=== PATIENT | female | born 1945 | race Caucasian/White ===

== ENCOUNTER → 2018-01-20 12:47 | Outpatient (CLI) | payer MEDICARE, SELFPAY ==
--- NOTE | 2018-01-20 | DI.CT.S_ITS ---
PROCEDURE: CT ABDOMEN WWO PELVIS W INDICATIONS: RIGHT RENAL MASS TECHNIQUE: After the administration of oral contrast, 5 mm thick sections acquired from the diaphragms to the iliac crests. After the administration of intravenous contrast, 5 mm thick sections acquired from the diaphragms to the symphysis. 5 mm thick coronal and sagittal reformats were acquired. For radiation dose reduction, the following was used: automated exposure control, adjustment of mA and/or kV according to patient size. COMPARISON: [facility], CT, ABDOMEN/PELVIS WITH CONTRAST, 08/10/2014, 10:14. FINDINGS: Image quality: Excellent. ABDOMEN: Lung bases: Mild pulmonary radiopacities are present at the left lung base which may represent trace atelectasis. No pleural effusion or pneumothorax. Solid organs: Liver is normal in size and enhancement. 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 Gallbladder is contracted. Biliary system is non-dilated. Pancreas enhances normally. Spleen is normal in size and enhancement. No adrenal nodules. The kidneys are normal in size and enhancement. No hydronephrosis or nephrolithiasis. Patient is status post resection of an exophytic renal mass off the lower pole of the right kidney. Bowel and peritoneum: Stomach, small and large bowel loops are normal in caliber and wall thickness. No free fluid or air. Nodes and vessels: No retroperitoneal or mesenteric adenopathy by size criteria. Aorta and inferior vena are normal in caliber. Scattered atheromatous calcifications are present within the abdominal aorta and the iliac arteries. Miscellaneous: No ventral hernias. PELVIS: Genitourinary: Bladder wall thickness is normal. Miscellaneous: No inguinal hernias or adenopathy. Bones: No suspicious bony lesions. No vertebral body compression fractures. Superior endplate compression deformities at L1 and L2 are unchanged. IMPRESSION: 1. Postoperative changes at the lower pole the right kidney secondary to renal mass resection. 2. No findings to suggest tumor recurrence or metastasis. Dictated by: Magali Chapman M.D. on 01/20/2018 at 15:52 Approved by: Magali Chapman M.D. on 01/20/2018 at 15:59
[2018-01-20 14:49] LABS: Alanine Aminotransferase 28 IU/L (9-52); Albumin 4.2 g/dL (3.5-5.0); Albumin Globulin Ratio 1.8 (1.0-2.8); Alkaline Phosphatase 70 U/L (38-126); Aspartate Aminotransferase 29 IU/L (14-36); BUN Creatinine Ratio 18.8 (6-22); Bilirubin Total 0.6 mg/dL (0.2-1.3); Blood Urea Nitrogen 15 mg/dL (7-17); Calcium 9.8 mg/dL (8.4-10.2); Carbon Dioxide 30 mmol/L (22-32); Chloride 101 mmol/L (98-107); Estimated Glomerular Filt Rate > 60.0 mL/min (>60); Globulin 2.4 g/dL (1.7-4.1); Glucose 96 mg/dL (80-110); HEMOLYSIS < 15 (0-50); Potassium 4.9 mmol/L (3.4-5.1); Sodium 139 mmol/L (137-145); Total Protein 6.6 g/dL (6.3-8.2)
== END ==
PROVIDERS: PCP Family Medicine; Visit Provider Family Medicine
DX: N28.89 Other specified disorders of kidney and ureter (principal)
CPT/HCPCS: 36415; 74178; 80053; Q9967

== ENCOUNTER 2020-05-26 12:45 | Emergency (ER) | payer MEDICARE, SELFPAY ==
[2020-05-26] VITALS (9 sets, daily range): BP systolic 139–199; BP diastolic 67–87; PULSE 50–67; RESP 16–25; TEMP 36.4–37.1; O2SAT 98–99; BMI 20.9
--- NOTE | 2020-05-26 13:18 | DI.RAD.S_ITS ---
PROCEDURE: XR CHEST 1V INDICATIONS: palpitations TECHNIQUE: One view of the chest was acquired. COMPARISON: None. FINDINGS: Overlying EKG wires. Surgical changes and devices: None. Lungs and pleura: Lungs are clear. No pleural effusions or pneumothorax. Mediastinum: Mediastinal contours appear normal. Heart size is normal. Bones and chest wall: Osseous structures are diffusely demineralized. No acute osseous abnormality. No suspicious bony lesions. Overlying soft tissues appear unremarkable. IMPRESSION: No evidence of an acute cardiopulmonary abnormality. Dictated by: Cisco Jimenez D.O. on 05/26/2020 at 12:32 Approved by: Cisco Jimenez D.O. on 05/26/2020 at 12:33
--- NOTE | 2020-05-26 13:19 | ED.ARRPALP ---
HPI - Arrhythmia/Palpitations <RACHEL Boss-BC - Last Filed: 05/26/20 17:35> General Chief Complaint: Arrhythmia/Palpitations Stated Complaint: heart not beating normally for a couple of days Time Seen by Provider: 05/26/20 13:04 Source: patient and family Mode of arrival: Ambulatory Limitations: no limitations History of Present Illness HPI narrative: The patient is a 74-year-old female nonsmoker with history of supraventricular tachycardia who presents with her with a chief complaint of palpitations over the past few days. She notes that they have been coming and going, with no specific trigger. She denies any chest pain or lightheadedness. She denies any swelling of her extremities. She states that she takes digoxin 125 and verapamil 240 extended release every otherwise she takes no other medications. She denies any nausea or vomiting. She denies any abdominal pain. She states that her supraventricular tachycardia has been well controlled with her medications, she has never had a ablation or procedure. She does not have a human resources generalist. Related Data Allergies Allergy/AdvReac Type Severity Reaction Status Date / Time levofloxacin [From LEVAQUIN] Allergy Mild tingling Verified 05/26/20 13:00 metronidazole [METRONIDAZOLE] Allergy Mild tingling Verified 05/26/20 13:00 levothyroxine sodium Allergy Unknown tingling - Verified 05/26/20 13:00 [LEVOTHYROXINE SODIUM] unsure which med caused it Review of Systems <RACHEL Boss-BC - Last Filed: 05/26/20 17:35> Review of Systems Narrative: GENERAL: Denies chills, fatigue, malaise, fever, sweats. HEENT: Denies sinus pain, ear pain, sore throat, difficulty swallowing, dizziness. RESPIRATORY: Denies dyspnea, cough, wheezing, hemoptysis, sputum. CARDIOVASCULAR: HPI GASTROINTESTINAL: Denies nausea, vomiting, abdominal pain, diarrhea, constipation, melena. : Denies dysuria, frequency, incontinence, hematuria, urinary retention. MUSCULOSKELETAL: denies weakness, joint pain, or bony pain SKIN: Denies rash, skin lesions, or other NEUROLOGIC: Denies weakness, headache, numbness, change in speech, confusion, seizures, incoordination. PSYCHIATRIC: No concerning psychosocial issues. 12 point review of systems is negative except for those stated above Patient History <SHAY Boss - Last Filed: 05/26/20 17:35> Medical History (Updated 05/26/20 @ 15:45 by SHAY Boss) History of supraventricular tachycardia Social History Smoking Status: Unknown if ever smoked Smoking Status: Unknown if ever smoked alcohol intake frequency: holidays/special occasions only Substance Use Type: does not use Exam <SHAY Boss - Last Filed: 05/26/20 17:35> Narrative Exam Narrative: GENERAL: This is a well-nourished, well-developed patient, in no acute distress lying on stretcher HEAD: Atraumatic. Normocephalic. No temporal or scalp tenderness. EYES: Pupils equal round and reactive. Extraocular motions intact. No scleral icterus. No injection or drainage. ENT: Nose without bleeding, purulent drainage or septal hematoma. Wearing a mask. Airway patent. NECK: Trachea midline. No JVD or lymphadenopathy. Supple, nontender, no meningeal signs. CARDIOVASCULAR: Regular rate and rhythm RESPIRATORY: Clear to auscultation. Breath sounds equal bilaterally. No wheezes, rales, or rhonchi. No cough. No increased respiratory effort. No accessory muscle use. GASTROINTESTINAL: Abdomen soft, non-tender, nondistended. No hepato-splenomegaly, or palpable masses. No guarding. EXTREMITIES: No clubbing, cyanosis, or edema. No joint tenderness, effusion, or edema noted. BACK: Nontender without deformity or crepitance. No flank tenderness. NEURO: AOx3. Clear speech. No gross cranial nerve deficit. SKIN: No rash or erythema on visible skin Initial Vital Signs Initial Vital Signs: Vital Signs Temperature 97.5 F L 05/26/20 12:50 Pulse Rate 64 05/26/20 12:50 Respiratory Rate 17 05/26/20 12:50 Blood Pressure 199/87 H 05/26/20 12:50 Pulse Oximetry 98 05/26/20 12:50 <Malathi Magaña DO - Last Filed: 05/27/20 07:47> Initial Vital Signs Initial Vital Signs: Vital Signs Temperature 97.5 F L 05/26/20 12:50 Pulse Rate 64 05/26/20 12:50 Respiratory Rate 17 05/26/20 12:50 Blood Pressure 199/87 H 05/26/20 12:50 Pulse Oximetry 98 05/26/20 12:50 Scores <Dunia SHAY Aly - Last Filed: 05/26/20 17:35> GCS [place] coma scale eye opening: Spontaneous [place] coma scale verbal response: Orientated Miracle coma scale motor response: Obey commands Miracle coma scale total score: 15 Course <Dunia GODWIN Aly - Last Filed: 05/26/20 17:35> Orders Ordered: ED Orders 05/26/20 12:55 Complete Blood Count AUTO DIFF Stat Comprehensive Metabolic Panel Stat Digoxin Stat Lipase Stat Magnesium Stat NT-proBNP (BNP-Adult 18+) Stat Troponin & CK Cardiac Panel Stat 05/26/20 13:18 XR chest 1V Stat EKG-12 Lead Stat 05/26/20 13:44 Urine Microscopic Stat Vital Signs Vital signs: Vital Signs - 8 hr 05/26/20 12:50 05/26/20 12:52 05/26/20 13:00 Temperature 97.5 F L Pulse Rate 64 67 59 L Respiratory Rate 17 25 H Blood Pressure 199/87 H 199/87 H 181/81 H Pulse Oximetry 98 98 99 05/26/20 13:30 05/26/20 14:00 05/26/20 14:30 Temperature Pulse Rate 50 L 50 L 51 L Respiratory Rate 16 16 16 Blood Pressure 162/72 H 167/74 H 148/67 H Pulse Oximetry 99 98 98 05/26/20 15:00 05/26/20 15:30 05/26/20 15:54 Temperature 98.8 F Pulse Rate 52 L 51 L Respiratory Rate 16 17 Blood Pressure 139/67 148/69 H Pulse Oximetry 98 98 <Malathi Magaña DO - Last Filed: 05/27/20 07:47> Orders Ordered: ED Orders 05/26/20 12:55 Complete Blood Count AUTO DIFF Stat Comprehensive Metabolic Panel Stat Digoxin Stat Lipase Stat Magnesium Stat NT-proBNP (BNP-Adult 18+) Stat Troponin & CK Cardiac Panel Stat 05/26/20 13:18 XR chest 1V Stat EKG-12 Lead Stat 05/26/20 13:44 Urine Microscopic Stat Vital Signs Vital signs: Vital Signs - 8 hr 05/26/20 12:50 05/26/20 12:52 05/26/20 13:00 Temperature 97.5 F L Pulse Rate 64 67 59 L Respiratory Rate 17 25 H Blood Pressure 199/87 H 199/87 H 181/81 H Pulse Oximetry 98 98 99 05/26/20 13:30 05/26/20 14:00 05/26/20 14:30 Temperature Pulse Rate 50 L 50 L 51 L Respiratory Rate 16 16 16 Blood Pressure 162/72 H 167/74 H 148/67 H Pulse Oximetry 99 98 98 05/26/20 15:00 05/26/20 15:30 05/26/20 15:54 Temperature 98.8 F Pulse Rate 52 L 51 L Respiratory Rate 16 17 Blood Pressure 139/67 148/69 H Pulse Oximetry 98 98 MDM - Arrhythmia/Palpitations <RACHEL Boss- - Last Filed: 05/26/20 17:35> Differential Diagnosis Differential diagnosis: Likely palpitations, anxiety, artial fibrillation and artial flutter Lab Data Attestation: I reviewed the patient's lab results. Result diagrams: 05/26/20 12:55 05/26/20 12:55 Labs: Lab Results 05/26/20 05/26/20 05/26/20 Range/Units 12:55 12:55 12:55 WBC 7.1 (4.5-11.0) X10^3/uL RBC 4.87 (4.0-5.2) X10^6/uL Hgb 14.7 (12.0-16.0) g/dL Hct 44.3 (36-46) % MCV 91.0 (80-100) fL MCH 30.1 (26-34) PG MCHC 33.1 (30-36) % RDW 14.2 (11.6-14.8) % Plt Count 268 (150-400) X10^3/uL Neut % (Auto) 71.1 (50-75) % Lymph % (Auto) 21.7 L (25-40) % [place] % (Auto) 6.1 (3-14) % Eos % (Auto) 0.2 L (2-4) % Baso % (Auto) 0.9 (0-2) % Neut # (Auto) 5100 (3512-2011) /uL Lymph # (Auto) 1500 (2632-8602) /uL [place] # (Auto) 400 (0-900) /uL Eos # (Auto) 0 (0-450) /uL Baso # (Auto) 100 (0-100) /uL Sodium 135 L (137-145) mmol/L Potassium 3.8 (3.4-5.1) mmol/L Chloride 104 (98-107) mmol/L Carbon Dioxide 27 (22-32) mmol/L BUN 15 (7-17) mg/dL Creatinine 0.63 (0.52-1.04) mg/dL Estimated GFR > 60.0 (>60) mL/min BUN/Creatinine Ratio 23.8 H (6-22) Glucose 106 (80-110) mg/dL Calcium 9.6 (8.4-10.2) mg/dL Magnesium 1.9 (1.6-2.3) mg/dL Total Bilirubin 0.6 (0.2-1.3) mg/dL AST 32 (14-36) IU/L ALT 29 (<35) IU/L Alkaline Phosphatase 83 (38-126) U/L Total Creatine Kinase 50 (30-135) U/L CK-MB (CK-2) TNP CK-MB (CK-2) Rel Index TNP Troponin I < 0.012 (0.01-0.034) ng/mL NT-Pro-B Natriuret Pep 290 H (<125) pg/mL Total Protein 7.5 (6.3-8.2) g/dL Albumin 4.5 (3.5-5.0) g/dL Globulin 3.0 (1.7-4.1) g/dL Albumin/Globulin Ratio 1.5 (1.0-2.8) Lipase 73 (23-300) U/L Urine RBC (0-5/HPF) Urine WBC (0-5/HPF) Ur Squamous Epith Cells (0-5/HPF) Urine Bacteria (None) Ur Culture Indicated? Digoxin 1.0 (0.8-2.0) ng/mL 05/26/20 Range/Units 13:44 WBC (4.5-11.0) X10^3/uL RBC (4.0-5.2) X10^6/uL Hgb (12.0-16.0) g/dL Hct (36-46) % MCV (80-100) fL MCH (26-34) PG MCHC (30-36) % RDW (11.6-14.8) % Plt Count (150-400) X10^3/uL Neut % (Auto) (50-75) % Lymph % (Auto) (25-40) % [place] % (Auto) (3-14) % Eos % (Auto) (2-4) % Baso % (Auto) (0-2) % Neut # (Auto) (2881-5369) /uL Lymph # (Auto) (1544-7434) /uL [place] # (Auto) (0-900) /uL Eos # (Auto) (0-450) /uL Baso # (Auto) (0-100) /uL Sodium (137-145) mmol/L Potassium (3.4-5.1) mmol/L Chloride (98-107) mmol/L Carbon Dioxide (22-32) mmol/L BUN (7-17) mg/dL Creatinine (0.52-1.04) mg/dL Estimated GFR (>60) mL/min BUN/Creatinine Ratio (6-22) Glucose (80-110) mg/dL Calcium (8.4-10.2) mg/dL Magnesium (1.6-2.3) mg/dL Total Bilirubin (0.2-1.3) mg/dL AST (14-36) IU/L ALT (<35) IU/L Alkaline Phosphatase (38-126) U/L Total Creatine Kinase (30-135) U/L CK-MB (CK-2) CK-MB (CK-2) Rel Index Troponin I (0.01-0.034) ng/mL NT-Pro-B Natriuret Pep (<125) pg/mL Total Protein (6.3-8.2) g/dL Albumin (3.5-5.0) g/dL Globulin (1.7-4.1) g/dL Albumin/Globulin Ratio (1.0-2.8) Lipase (23-300) U/L Urine RBC 0-1/hpf (0-5/HPF) Urine WBC 1-5/hpf (0-5/HPF) Ur Squamous Epith Cells 0-1 /hpf (0-5/HPF) Urine Bacteria None seen (None) Ur Culture Indicated? Cult not indicated Digoxin (0.8-2.0) ng/mL Urine Dip Bedside Urine Glucose Negative Bedside Urine Bilirubin - Negative Bedside Urine Ketone - Negative Urine Specific [place] 1.020 Bedside Urine Occult Blood - Negative Bedside Urine pH 6.0 Bedside Urine Protein - Negative Bedside Urine Urobilinogen - Negative Bedside Urine Nitrite - Negative Bedside Urine Leukocytes + 70 Esterase Imaging Data Chest x-ray: Radiologist's Impresson: Chest x-ray one view shows no evidence of acute cardiopulmonary abnormality per Jimenez D.O. ECG Data Attestation: I personally reviewed and interpreted this ECG as follows: Interpretation: Sinus rhythm. Ventricular rate 61. P.r. interval 138. QRS 86. Viewed by Dr Magaña MDM Narrative Medical decision making narrative: The patient is a 74-year-old female with history of SVT who presents with a chief complaint of palpitations over the past few days. Her EKG has no acute findings. She remains on telemetry for several hours with no observed ectopy or arrhythmias. Her labs are grossly within normal limits, no elevated troponin, normal electrolytes,dig level within range. She adamantly denies any chest pain, shortness of breath, abdominal pain or physical complaints whatsoever. She states that her palpitations improved upon arrival to the emergency department today. I discussed at length the importance of following up with primary care provider, she may benefit from an outpatient Holter monitor. Discussed the possibility of a 2nd troponin, though the patient would like to leave. Given that she has no chest pain or shortness of breath, I am okay with this. <Malathi Magaña, DO - Last Filed: 05/27/20 07:47> Lab Data Labs: Lab Results 05/26/20 05/26/20 05/26/20 Range/Units 12:55 12:55 12:55 WBC 7.1 (4.5-11.0) X10^3/uL RBC 4.87 (4.0-5.2) X10^6/uL Hgb 14.7 (12.0-16.0) g/dL Hct 44.3 (36-46) % MCV 91.0 (80-100) fL MCH 30.1 (26-34) PG MCHC 33.1 (30-36) % RDW 14.2 (11.6-14.8) % Plt Count 268 (150-400) X10^3/uL Neut % (Auto) 71.1 (50-75) % Lymph % (Auto) 21.7 L (25-40) % [place] % (Auto) 6.1 (3-14) % Eos % (Auto) 0.2 L (2-4) % Baso % (Auto) 0.9 (0-2) % Neut # (Auto) 5100 (0933-4788) /uL Lymph # (Auto) 1500 (8439-2585) /uL [place] # (Auto) 400 (0-900) /uL Eos # (Auto) 0 (0-450) /uL Baso # (Auto) 100 (0-100) /uL Sodium 135 L (137-145) mmol/L Potassium 3.8 (3.4-5.1) mmol/L Chloride 104 (98-107) mmol/L Carbon Dioxide 27 (22-32) mmol/L BUN 15 (7-17) mg/dL Creatinine 0.63 (0.52-1.04) mg/dL Estimated GFR > 60.0 (>60) mL/min BUN/Creatinine Ratio 23.8 H (6-22) Glucose 106 (80-110) mg/dL Calcium 9.6 (8.4-10.2) mg/dL Magnesium 1.9 (1.6-2.3) mg/dL Total Bilirubin 0.6 (0.2-1.3) mg/dL AST 32 (14-36) IU/L ALT 29 (<35) IU/L Alkaline Phosphatase 83 (38-126) U/L Total Creatine Kinase 50 (30-135) U/L CK-MB (CK-2) TNP CK-MB (CK-2) Rel Index TNP Troponin I < 0.012 (0.01-0.034) ng/mL NT-Pro-B Natriuret Pep 290 H (<125) pg/mL Total Protein 7.5 (6.3-8.2) g/dL Albumin 4.5 (3.5-5.0) g/dL Globulin 3.0 (1.7-4.1) g/dL Albumin/Globulin Ratio 1.5 (1.0-2.8) Lipase 73 (23-300) U/L Urine RBC (0-5/HPF) Urine WBC (0-5/HPF) Ur Squamous Epith Cells (0-5/HPF) Urine Bacteria (None) Ur Culture Indicated? Digoxin 1.0 (0.8-2.0) ng/mL 05/26/20 Range/Units 13:44 WBC (4.5-11.0) X10^3/uL RBC (4.0-5.2) X10^6/uL Hgb (12.0-16.0) g/dL Hct (36-46) % MCV (80-100) fL MCH (26-34) PG MCHC (30-36) % RDW (11.6-14.8) % Plt Count (150-400) X10^3/uL Neut % (Auto) (50-75) % Lymph % (Auto) (25-40) % [place] % (Auto) (3-14) % Eos % (Auto) (2-4) % Baso % (Auto) (0-2) % Neut # (Auto) (2751-7905) /uL Lymph # (Auto) (0708-8891) /uL [place] # (Auto) (0-900) /uL Eos # (Auto) (0-450) /uL Baso # (Auto) (0-100) /uL Sodium (137-145) mmol/L Potassium (3.4-5.1) mmol/L Chloride (98-107) mmol/L Carbon Dioxide (22-32) mmol/L BUN (7-17) mg/dL Creatinine (0.52-1.04) mg/dL Estimated GFR (>60) mL/min BUN/Creatinine Ratio (6-22) Glucose (80-110) mg/dL Calcium (8.4-10.2) mg/dL Magnesium (1.6-2.3) mg/dL Total Bilirubin (0.2-1.3) mg/dL AST (14-36) IU/L ALT (<35) IU/L Alkaline Phosphatase (38-126) U/L Total Creatine Kinase (30-135) U/L CK-MB (CK-2) CK-MB (CK-2) Rel Index Troponin I (0.01-0.034) ng/mL NT-Pro-B Natriuret Pep (<125) pg/mL Total Protein (6.3-8.2) g/dL Albumin (3.5-5.0) g/dL Globulin (1.7-4.1) g/dL Albumin/Globulin Ratio (1.0-2.8) Lipase (23-300) U/L Urine RBC 0-1/hpf (0-5/HPF) Urine WBC 1-5/hpf (0-5/HPF) Ur Squamous Epith Cells 0-1 /hpf (0-5/HPF) Urine Bacteria None seen (None) Ur Culture Indicated? Cult not indicated Digoxin (0.8-2.0) ng/mL Urine Dip Bedside Urine Glucose Negative Bedside Urine Bilirubin - Negative Bedside Urine Ketone - Negative Urine Specific [place] 1.020 Bedside Urine Occult Blood - Negative Bedside Urine pH 6.0 Bedside Urine Protein - Negative Bedside Urine Urobilinogen - Negative Bedside Urine Nitrite - Negative Bedside Urine Leukocytes + 70 Esterase Discharge Plan Departure Patient Disposition: Home Clinical Impression: Palpitations Instructions: DI for Palpitations Activity Restrictions/Additional Instructions: Thank you for trusting us with your care today. As discussed you have been on her registered nurse cardiac telemetry for several hours with no noted arrhythmias or irregular beats. Your EKG resulted well as did all of your lab work. Please follow-up with primary care provider in the next few days. If your palpitations continue, you may benefit from an outpatient monitor. Please come back to the emergency department for any acute concerns such as concern of chest pain, shortness of breath, concern of heart attack stroke or irregular heartbeat. Referrals: Isaaís Modi MD [Primary Care Provider] - <Malathi Magaña DO - Last Filed: 05/27/20 07:47> Cosign ED Attending Peterature Attestation: I was immediately available in the department for consultation. Documentation has been reviewed. I agree with assessment and plan.
[2020-05-26 13:28] LABS: Add Manual Diff / Slide Review NO; Basophils Absolute Auto 100 /uL (0-100); Basophils Percent Auto 0.9 % (0-2); Eosinophils Absolute Auto 0 /uL (0-450); Eosinophils Percent Auto 0.2 % (2-4); Hematocrit 44.3 % (36-46); Hemoglobin 14.7 g/dL (12.0-16.0); Lymphocytes Absolute Auto 1500 /uL (1100-4500); Lymphocytes Percent Auto 21.7 % (25-40); Mean Corpuscular HGB Conc 33.1 % (30-36); Mean Corpuscular Hemoglobin 30.1 PG (26-34); Monocytes Absolute Auto 400 /uL (0-900); Monocytes Percent Auto 6.1 % (3-14); Neutrophils Absolute Auto 5100 /uL (1500-7000); Neutrophils Percent Auto 71.1 % (50-75); Platelet Count 268 X10^3/uL (150-400); Red Blood Cell Count 4.87 X10^6/uL (4.0-5.2); Red Cell Distribution Width 14.2 % (11.6-14.8); White Blood Cell Count 7.1 X10^3/uL (4.5-11.0)
[2020-05-26 13:33] LABS: Alanine Aminotransferase 29 IU/L (<35); Albumin 4.5 g/dL (3.5-5.0); Albumin Globulin Ratio 1.5 (1.0-2.8); Alkaline Phosphatase 83 U/L (38-126); Aspartate Aminotransferase 32 IU/L (14-36); BUN Creatinine Ratio 23.8 (6-22); Bilirubin Total 0.6 mg/dL (0.2-1.3); Blood Urea Nitrogen 15 mg/dL (7-17); Calcium 9.6 mg/dL (8.4-10.2); Carbon Dioxide 27 mmol/L (22-32); Chloride 104 mmol/L (98-107); Creatine Kinase 50 U/L (30-135); Estimated Glomerular Filt Rate > 60.0 mL/min (>60); Glucose 106 mg/dL (80-110); HEMOLYSIS < 15 (0-50); Lipase 73 U/L (23-300); Magnesium 1.9 mg/dL (1.6-2.3); Potassium 3.8 mmol/L (3.4-5.1); Sodium 135 mmol/L (137-145); Total Protein 7.5 g/dL (6.3-8.2)
[2020-05-26 13:44] LABS: NT-proBNP (BNP-Adult 18+) 290 pg/mL (<125); Troponin I < 0.012 ng/mL (0.01-0.034)
[2020-05-26 13:50] LABS: Bacteria Urine None Seen
[2020-05-26 14:06] LABS: Culture Indicated Urine Cult Not Indicated; RBC Urine 0-1/HPF (0-5/HPF); Squamous Epithelial Cell Urine 0-1 /HPF (0-5/HPF); WBC Urine 1-5/HPF (0-5/HPF)
== END 2020-05-26 15:57 | disposition home or self-care (01) ==
PROVIDERS: Emergency Provider Nurse Practitioner Family; PCP Family Medicine
DX: R00.2 Palpitations (principal)
CPT/HCPCS: 36415; 71045; 80053; 80162; 81003; 81015; 82550; 83690; 83735; 83880; 84484; 85025; 93005; 93010; 99283; 99284

== ENCOUNTER 2020-10-08 10:33 | Observation (INO) | payer MEDICARE, SELFPAY ==
[2020-10-08] VITALS (11 sets, daily range): BP systolic 107–183; BP diastolic 45–80; PULSE 47–64; RESP 12–20; TEMP 35.9–36.7; O2SAT 96–99; BMI 24.7; BMI 20.2
--- NOTE | 2020-10-08 10:41 | DI.RAD.S_ITS ---
PROCEDURE: XR CHEST 1V INDICATIONS: chest pain TECHNIQUE: One view of the chest was acquired. COMPARISON: [facility], CR, XR CHEST 1V, 05/26/2020, 13:21. FINDINGS: Surgical changes and devices: None. Lungs and pleura: Mild left greater than right bibasilar patchy airspace opacity. No pleural effusions or pneumothorax. Mediastinum: Mediastinal contours appear normal. Heart size is normal. Bones and chest wall: No suspicious bony lesions. Overlying soft tissues appear unremarkable. IMPRESSION: Mild bibasilar atelectasis versus pneumonia. Dictated by: Damien Viveros M.D. on 10/08/2020 at 11:01 Approved by: Damien Viveros M.D. on 10/08/2020 at 11:02
[2020-10-08 11:12] LABS: Add Manual Diff / Slide Review NO; Basophils Absolute Auto 100 /uL (0-100); Basophils Percent Auto 0.9 % (0-2); Eosinophils Absolute Auto 0 /uL (0-450); Eosinophils Percent Auto 0.2 % (2-4); Hematocrit 44.6 % (36-46); Hemoglobin 14.7 g/dL (12.0-16.0); Lymphocytes Absolute Auto 1500 /uL (1100-4500); Lymphocytes Percent Auto 26.1 % (25-40); Mean Corpuscular HGB Conc 32.8 % (30-36); Mean Corpuscular Hemoglobin 29.9 PG (26-34); Mean Corpuscular Volume 91.2 fL (80-100); Monocytes Absolute Auto 300 /uL (0-900); Monocytes Percent Auto 6.2 % (3-14); Neutrophils Absolute Auto 3700 /uL (1500-7000); Neutrophils Percent Auto 66.6 % (50-75); Platelet Count 249 X10^3/uL (150-400); Prothrombin Time 11.3 SECONDS (10.1-12.7); Red Blood Cell Count 4.89 X10^6/uL (4.0-5.2); Red Cell Distribution Width 14.6 % (11.6-14.8); White Blood Cell Count 5.6 X10^3/uL (4.5-11.0)
--- NOTE | 2020-10-08 11:12 | ED.CHESTPAIN ---
HPI - Chest Pain General Chief Complaint: Chest Pain Stated Complaint: heart hasn't been feeling right Time Seen by Provider: 10/08/20 11:04 Source: patient Mode of arrival: Ambulatory History of Present Illness HPI narrative: Patient complains of intermittent substernal chest discomfort with palpitations in the past 1 week. Feels heart is skipping. Mild discomfort in the chest. No dyspnea no nausea no sweating. History of SVT. No previous cardioversion or ablation history. Last stress test 1 year ago in [place]. No recent echocardiogram. 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 Has family doctor on [facility]. Currently no complaints at this time. No recent illness fever chills cough cold congestion. No changes in medication. Including digoxin. Related Data Home Medications Medication Instructions Recorded Confirmed digoxin 125 mcg PO DAILY 10/08/20 10/08/20 verapamil 240 mg PO DAILY 10/08/20 10/08/20 Allergies Allergy/AdvReac Type Severity Reaction Status Date / Time levofloxacin [From LEVAQUIN] Allergy Mild tingling Verified 10/08/20 10:58 metronidazole [METRONIDAZOLE] Allergy Mild tingling Verified 10/08/20 10:58 levothyroxine sodium Allergy Unknown tingling - Verified 10/08/20 10:58 [LEVOTHYROXINE SODIUM] unsure which med caused it Review of Systems Review of Systems Narrative: GENERAL: Denies chills, fatigue, malaise, fever, sweats. HEENT: Denies sinus pain, ear pain, sore throat RESPIRATORY: Denies dyspnea, cough CARDIOVASCULAR: Complains chest pain, palpitations GASTROINTESTINAL: Denies nausea, vomiting, abdominal pain : Denies dysuria, frequency, hematuria MUSCULOSKELETAL: denies muscle or bony pain SKIN: Denies rash, skin lesions NEUROLOGIC: Denies weakness, numbness ROS Unobtainable: All systems reviewed & are unremarkable except as noted in HPI and below Patient History Medical History History of supraventricular tachycardia Surgical History (Updated 10/08/20 @ 22:01 by Cayetano Flanagan DO) H/O partial nephrectomy H/O: hysterectomy Social History household members: spouse Smoking Status: Former smoker alcohol intake: current Smoking Status: Never smoker alcohol intake frequency: 0-2 drinks per day Substance Use Type: does not use Exam Narrative Exam Narrative: GENERAL: in no distress, not toxic not dyspneic HEAD: Normocephalic. EYES: Pupils equal round No scleral icterus. No injection no discharge ENT: Mucous membranes moist. NECK: Trachea midline. CARDIOVASCULAR: Regular rate and rhythm without murmurs, bradycardia RESPIRATORY: Clear to auscultation. Breath sounds equal bilaterally. No wheezes, rales, or rhonchi. GASTROINTESTINAL: Abdomen soft, non-tender EXTREMITIES: No gross deformities. BACK: No flank tenderness. NEURO: AOx4. SKIN: Warm and dry PSYCH: Not anxious, is cooperative Initial Vital Signs Initial Vital Signs: Vital Signs Temperature 98.0 F 10/08/20 10:54 Pulse Rate 47 L 10/08/20 10:54 Respiratory Rate 14 10/08/20 10:54 Blood Pressure 183/80 H 10/08/20 10:54 Pulse Oximetry 98 10/08/20 10:54 Course Course Course Narrative: No new issues during course of stay Decision to Admit Date: 10/08/20 Decision to Admit time: 13:15 Orders Ordered: Discontinued Medications Acetaminophen (Acetaminophen 325 Mg Tablet) 650 mg PO Q6HR PRN PRN Reason: Fever/Mild Pain (1-3) Aspirin (Aspirin 81 Mg Chew Tab) 324 mg PO NOW ONE Stop: 10/08/20 11:13 Last Admin: 10/08/20 11:18 Dose: 324 mg Documented by: ASA Digoxin (Digoxin 0.125 Mg Tablet) 0.125 mg PO DAILY [facility] Last Admin: 10/09/20 09:33 Dose: 0.125 mg Documented by: BERT Enoxaparin Sodium (Enoxaparin 40 Mg/0.4 Ml Syringe) 40 mg SUBCUT DAILY [facility] Last Admin: 10/09/20 09:38 Dose: Not Given Documented by: BERT Non-Formulary Medication (Verapamil) 240 mg PO DAILY [facility] Ondansetron HCl (Ondansetron 4 Mg/2 Ml Inj) 4 mg IV Q8HR PRN PRN Reason: Nausea And Vomiting Sodium Chloride (Sodium Chloride 0.9% Flush) 10 ml IV PRN PRN PRN Reason: Flush Sodium Chloride (Sodium Chloride 0.9% Flush) 10 ml IV BID [facility] Last Admin: 10/09/20 09:33 Dose: 10 ml Documented by: Admin: 10/08/20 21:58 Dose: 10 ml Documented by: ES Verapamil HCl (Verapamil Sr 120 Mg Tablet) 240 mg PO DAILY [facility] Last Admin: 10/09/20 09:33 Dose: 240 mg Documented by: BERT Reevaluation(s) Reevaluation #1: Reviewed results with patient and agrees for admission. Time: 13:15 Consultations Consultation #1: Spoke with Dr. mckinney, cardiology. Patient would benefit from admission here and echocardiogram/stress test Consultation #2: Spoke with Dr. Flanagan, will admit Time: 13:15 Vital Signs Vital signs: Vital Signs - 8 hr 10/08/20 10:54 10/08/20 11:28 10/08/20 12:22 Temperature 98.0 F Pulse Rate 47 L 47 L 51 L Respiratory Rate 14 16 18 Blood Pressure 183/80 H 170/79 H Pulse Oximetry 98 98 97 10/08/20 12:30 10/08/20 12:54 10/08/20 13:00 Temperature Pulse Rate 47 L 51 L 48 L Respiratory Rate 17 12 Blood Pressure 150/69 H 144/68 H 145/70 H Pulse Oximetry 99 99 99 MDM - Chest Pain Differential Diagnosis Differential diagnosis: Likely stable angina, unstable angina pectoris, chest pain and other (Palpitations) Medical Records Data Attestation: I reviewed the patient's medical records. Lab Data Attestation: I reviewed the patient's lab results. Result diagrams: 10/09/20 05:30 10/09/20 05:30 Labs: Lab Results 10/08/20 10/08/20 10/08/20 Range/Units 10:50 10:50 10:50 WBC 5.6 (4.5-11.0) X10^3/uL RBC 4.89 (4.0-5.2) X10^6/uL Hgb 14.7 (12.0-16.0) g/dL Hct 44.6 (36-46) % MCV 91.2 (80-100) fL MCH 29.9 (26-34) PG MCHC 32.8 (30-36) % RDW 14.6 (11.6-14.8) % Plt Count 249 (150-400) X10^3/uL Neut % (Auto) 66.6 (50-75) % Lymph % (Auto) 26.1 (25-40) % Moffat % (Auto) 6.2 (3-14) % Eos % (Auto) 0.2 L (2-4) % Baso % (Auto) 0.9 (0-2) % Neut # (Auto) 3700 (1468-7012) /uL Lymph # (Auto) 1500 (8212-7441) /uL Moffat # (Auto) 300 (0-900) /uL Eos # (Auto) 0 (0-450) /uL Baso # (Auto) 100 (0-100) /uL PT 11.3 (10.1-12.7) SECONDS INR 1.0 (0.9-1.3) APTT 30 (26.4-36.2) SECONDS D-Dimer (<230) ng/mL Sodium 136 L (137-145) mmol/L Potassium 4.3 (3.4-5.1) mmol/L Chloride 104 (98-107) mmol/L Carbon Dioxide 27 (22-32) mmol/L BUN 12 (7-17) mg/dL Creatinine 0.70 (0.52-1.04) mg/dL Estimated GFR > 60.0 (>60) mL/min BUN/Creatinine Ratio 17.1 (6-22) Glucose 97 (80-110) mg/dL Calcium 9.8 (8.4-10.2) mg/dL Total Bilirubin 0.5 (0.2-1.3) mg/dL AST 29 (14-36) IU/L ALT 23 (<35) IU/L Alkaline Phosphatase 75 (38-126) U/L Total Creatine Kinase 44 (30-135) U/L CK-MB (CK-2) TNP CK-MB (CK-2) Rel Index TNP Troponin I < 0.012 (0.01-0.034) ng/mL NT-Pro-B Natriuret Pep (<450) pg/mL Total Protein 7.3 (6.3-8.2) g/dL Albumin 4.4 (3.5-5.0) g/dL Globulin 2.9 (1.7-4.1) g/dL Albumin/Globulin Ratio 1.5 (1.0-2.8) Lipase 63 (23-300) U/L TSH (0.47-4.68) uIU/mL Digoxin (0.8-2.0) ng/mL SARS-CoV-2 (PCR) (Negative) 10/08/20 10/08/20 10/08/20 Range/Units 10:50 10:50 10:50 WBC (4.5-11.0) X10^3/uL RBC (4.0-5.2) X10^6/uL Hgb (12.0-16.0) g/dL Hct (36-46) % MCV (80-100) fL MCH (26-34) PG MCHC (30-36) % RDW (11.6-14.8) % Plt Count (150-400) X10^3/uL Neut % (Auto) (50-75) % Lymph % (Auto) (25-40) % Moffat % (Auto) (3-14) % Eos % (Auto) (2-4) % Baso % (Auto) (0-2) % Neut # (Auto) (2396-8915) /uL Lymph # (Auto) (4543-9988) /uL Moffat # (Auto) (0-900) /uL Eos # (Auto) (0-450) /uL Baso # (Auto) (0-100) /uL PT (10.1-12.7) SECONDS INR (0.9-1.3) APTT (26.4-36.2) SECONDS D-Dimer < 200 (<230) ng/mL Sodium (137-145) mmol/L Potassium (3.4-5.1) mmol/L Chloride (98-107) mmol/L Carbon Dioxide (22-32) mmol/L BUN (7-17) mg/dL Creatinine (0.52-1.04) mg/dL Estimated GFR (>60) mL/min BUN/Creatinine Ratio (6-22) Glucose (80-110) mg/dL Calcium (8.4-10.2) mg/dL Total Bilirubin (0.2-1.3) mg/dL AST (14-36) IU/L ALT (<35) IU/L Alkaline Phosphatase (38-126) U/L Total Creatine Kinase (30-135) U/L CK-MB (CK-2) CK-MB (CK-2) Rel Index Troponin I (0.01-0.034) ng/mL NT-Pro-B Natriuret Pep (<450) pg/mL Total Protein (6.3-8.2) g/dL Albumin (3.5-5.0) g/dL Globulin (1.7-4.1) g/dL Albumin/Globulin Ratio (1.0-2.8) Lipase (23-300) U/L TSH 3.91 (0.47-4.68) uIU/mL Digoxin 1.2 (0.8-2.0) ng/mL SARS-CoV-2 (PCR) (Negative) 10/08/20 10/08/20 Range/Units 10:50 12:52 WBC (4.5-11.0) X10^3/uL RBC (4.0-5.2) X10^6/uL Hgb (12.0-16.0) g/dL Hct (36-46) % MCV (80-100) fL MCH (26-34) PG MCHC (30-36) % RDW (11.6-14.8) % Plt Count (150-400) X10^3/uL Neut % (Auto) (50-75) % Lymph % (Auto) (25-40) % Moffat % (Auto) (3-14) % Eos % (Auto) (2-4) % Baso % (Auto) (0-2) % Neut # (Auto) (1147-9381) /uL Lymph # (Auto) (0807-9621) /uL Moffat # (Auto) (0-900) /uL Eos # (Auto) (0-450) /uL Baso # (Auto) (0-100) /uL PT (10.1-12.7) SECONDS INR (0.9-1.3) APTT (26.4-36.2) SECONDS D-Dimer (<230) ng/mL Sodium (137-145) mmol/L Potassium (3.4-5.1) mmol/L Chloride (98-107) mmol/L Carbon Dioxide (22-32) mmol/L BUN (7-17) mg/dL Creatinine (0.52-1.04) mg/dL Estimated GFR (>60) mL/min BUN/Creatinine Ratio (6-22) Glucose (80-110) mg/dL Calcium (8.4-10.2) mg/dL Total Bilirubin (0.2-1.3) mg/dL AST (14-36) IU/L ALT (<35) IU/L Alkaline Phosphatase (38-126) U/L Total Creatine Kinase (30-135) U/L CK-MB (CK-2) CK-MB (CK-2) Rel Index Troponin I (0.01-0.034) ng/mL NT-Pro-B Natriuret Pep 260 (<450) pg/mL Total Protein (6.3-8.2) g/dL Albumin (3.5-5.0) g/dL Globulin (1.7-4.1) g/dL Albumin/Globulin Ratio (1.0-2.8) Lipase (23-300) U/L TSH (0.47-4.68) uIU/mL Digoxin (0.8-2.0) ng/mL SARS-CoV-2 (PCR) Negative (Negative) Imaging Data Chest x-ray: Radiologist's Impression: [address] [id number] ReportSigned Patient: Kristina CeeMR#: [id number]: 5Acct:[id number]/Sex: 75 / FDate of Service: 10/08/20Loc: EDAccession Number: [id number] Procedure: XR chest 1V Ordering Provider: Isaías Jo MD PROCEDURE: XR CHEST 1V INDICATIONS: chest pain TECHNIQUE: One view of the chest was acquired. COMPARISON: [facility], , XR CHEST 1V, 05/26/2020, 13:21. FINDINGS: Surgical changes and devices: None. Lungs and pleura: Mild left greater than right bibasilar patchy airspace opacity. No pleural effusions or pneumothorax. Mediastinum: Mediastinal contours appear normal. Heart size is normal. Bones and chest wall: No suspicious bony lesions. Overlying soft tissues appear unremarkable. IMPRESSION: Mild bibasilar atelectasis versus pneumonia. Dictated by: Damien Viveros M.D. on 10/08/2020 at 11:01 Approved by: Damien Viveros M.D. on 10/08/2020 at 11:02 ECG Data Attestation: I personally reviewed and interpreted this ECG as follows: Interpretation: Sinus bradycardia rate [address] elevation or depression MDM Narrative Medical decision making narrative: Appropriate for admission. Patient ongoing chest pain and palpitations. 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
[2020-10-08 11:15] LABS: PTT Partial Thromboplastin Tim 30 SECONDS (26.4-36.2)
[2020-10-08] MEDS: ASPIRIN 81 MG CHEW TAB 324 MG PO (11:18)
[2020-10-08 11:21] LABS: Alanine Aminotransferase 23 IU/L (<35); Albumin 4.4 g/dL (3.5-5.0); Albumin Globulin Ratio 1.5 (1.0-2.8); Alkaline Phosphatase 75 U/L (38-126); Aspartate Aminotransferase 29 IU/L (14-36); BUN Creatinine Ratio 17.1 (6-22); Bilirubin Total 0.5 mg/dL (0.2-1.3); Blood Urea Nitrogen 12 mg/dL (7-17); Calcium 9.8 mg/dL (8.4-10.2); Carbon Dioxide 27 mmol/L (22-32); Chloride 104 mmol/L (98-107); Creatine Kinase 44 U/L (30-135); Estimated Glomerular Filt Rate > 60.0 mL/min (>60); Globulin 2.9 g/dL (1.7-4.1); Glucose 97 mg/dL (80-110); HEMOLYSIS 25 (0-50); Lipase 63 U/L (23-300); Potassium 4.3 mmol/L (3.4-5.1); Sodium 136 mmol/L (137-145); Total Protein 7.3 g/dL (6.3-8.2)
[2020-10-08 11:31] LABS: Troponin I < 0.012 ng/mL (0.01-0.034)
[2020-10-08 11:42] LABS: D Dimer < 200 ng/mL (<230)
[2020-10-08 11:56] LABS: Thyroid Stimulating Hormone 3.91 uIU/mL (0.47-4.68)
--- NOTE | 2020-10-08 12:46 | DI.ECHO.S_ITS ---
[facility] +---------+ : : [address] : : : : [id number] : : : : Phone: [phone]+ Echocardiogram Report + + :Name: LINUS HERNANDEZ Study Date: 10/09/2020 Height: 63 in : :[facility] ReadingLocation: Weight: 140 lb : : Gender: Female BSA: 1.7 m2 : :: 1945 Age: 75 yrs BP: 144/68 mmHg: :Reason For Study: SHORTNESS OF BREATH : :Ordering Physician: SEJAL, : :GUERA Performed By: Melita Medrano : :Referring: GUERA POST : + + Interpretation Summary The ejection fraction is estimated to be 60-65%. There is mild mitral regurgitation. There is no pericardial effusion. Procedure: A two-dimensional transthoracic echocardiogram with color flow and Doppler was performed. The study quality was technically adequate. There is no prior echocardiogram noted for this patient. The patient was in sinus bradycardia with heart rates between 46-52 bpm during the exam. Left Ventricle: The left ventricle is normal in size and wall thickness. The ejection fraction is estimated to be 60-65%. Left ventricular wall motion is normal. Diastolic parameters suggest probable normal left ventricular diastolic function and normal filling pressures. Right Ventricle: The right ventricle is normal in size and function. Atria: Both atria are normal in size. There is no Doppler evidence for an interatrial shunt. Mitral Valve: The mitral valve is normal in structure and function. There is mild mitral regurgitation. Aortic Valve: The aortic valve is trileaflet. The aortic valve opens well. There is no aortic valve stenosis. No aortic regurgitation is present. Tricuspid Valve: The tricuspid valve is normal in structure and function. There is trace tricuspid regurgitation. Pulmonary artery pressures cannot be estimated because of the lack of a measurable TR jet velocity but the IVC suggests a CVP of around 3 mmHg. Pulmonic Valve: The pulmonic valve leaflets are thin and pliable; valve motion is normal. There is no pulmonic valvular regurgitation. Great Vessels: The aortic root is normal size. The dimensions of the ascending aorta are normal. The IVC is of normal diameter and collapses greater than 50% with a sniff. This suggests a low right atrial pressure of 3 mm Hg. Pericardium/ Pleura There is no pericardial effusion. There is no pleural effusion. MMode/2D Measurements & Calculations LVIDd: 4.5 cm LVOT diam: 2.1 cm LVIDs: 2.9 cm Ao root diam: 2.8 cm FS: 35.5 % asc Aorta Diam: 3.5 cm EPSS: 0.45 cm Ao Arch Diam (Prox Trans): 2.2 cm IVSd: 0.74 cm LVPWd: 0.88 cm LV sandoval. diameter/BSA (cm/m^2): 2.7 LV sys. diameter/BSA (cm/m^2): 1.8 LA A2 area: 16.3 cm2 RA long axis: 4.5 cm LA A4 area: 17.1 cm2 RA area: 15.1 cm2 LA length (vol): 5.1 cm RA vol: 43.3 ml LA vol: 46.5 ml RA : 26.1 ml/m2 LA vol index: 28.0 ml/m2 IVC diam: 1.7 cm RVD1 (basal): 2.9 cm TAPSE: 1.7 cm Doppler Measurements & Calculations Ao V2 max: 105.9 cm/sec LVOT Max Cedric: 94.2 cm/sec Ao V2 mean: 73.3 cm/sec LV V1 max P.5 mmHg Ao max P.5 mmHg LV V1 VTI: 22.0 cm Ao mean P.4 mmHg GAVIN(I,D): 2.6 cm2 Ao V2 VTI: 28.2 cm GAVIN(V,D): 3.0 cm2 sev ratio: 0.78 GAVIN indexed to BSA (cm^2/m^2): 1.6 MV E max cedric: 59.4 cm/sec PA V2 max: 67.2 cm/sec MV A max cedric: 60.8 cm/sec PA V2 mean: 48.2 cm/sec MV E/A: 0.98 PA mean P.0 mmHg Med Peak E' Cedric: 5.8 cm/sec PA pr(Accel): 31.0 mmHg E/E' med: 10.2 Lat Peak E' Cedric: 6.7 cm/sec E/E' lat: 8.9 E/e' average: 9.6 MV dec time: 0.30 sec SV([facility]): 73.2 ml Reading Physician:09:35 AM
[2020-10-08 13:11] LABS: NT-proBNP (BNP-Adult 18+) 260 pg/mL (<450)
[2020-10-08 13:56] LABS: COVID19 - ADMIT (NP swab/PCR) Negative (Negative)
--- NOTE | 2020-10-08 13:58 | PC.NURSE ---
Patient alert oriented denies chest pain ,nauses and shortness of breath. Oriented to room and call light.
[2020-10-08 14:41] LABS: Digoxin 1.2 ng/mL (0.8-2.0)
[2020-10-08 19:35] LABS: Troponin I < 0.012 ng/mL (0.01-0.034)
--- NOTE | 2020-10-08 19:56 | PM.HP.1 ---
History of Present Illness History of Present Illness Date Patient Seen: 10/08/20 Time Patient Seen: 18:30 Chief complaint: heart hasn't been feeling right Narrative: This is a 75-year-old female with a past medical history of SVT who presented with recurrent palpitations and chest pressure worsening over the previous 5 days. Patient states that she has a history of SVT, diagnosed more than 50 years ago and has been on digoxin and verapamil for upwards of 25 years. She has been well controlled with this but over the past year so she has had increasing palpitations with chest pressure. She states she was admitted to [facility] about a year ago for palpitations, she was evaluated overnight and had reported cardiac stress test which was unremarkable. She reports her symptoms have really picked up in the past 6 weeks. She complains of palpitations, but not tachycardia, simply irregular heartbeat. When these happen usually they last for a few minutes and she does note some left-sided chest pressure without radiation into her neck or jaw and no associated dizziness, headaches, vision changes, or falls. She denies any shortness of breath, dyspnea on exertion, orthopnea, lower extremity edema, recent fever or chills. In the emergency room, her vitals were unremarkable, EKG showed a sinus bradycardia, with no significant changes compared to previous tracings, and no contiguous ST depressions. Laboratory evaluation revealed an unremarkable CBC, normal coagulation studies, and an unremarkable chemistry, including negative troponins now x2. ProBNP was 260. TSH was unremarkable. Digoxin level was 1.2. COVID-19 testing was negative. Patient History Medical History History of supraventricular tachycardia Surgical History (Updated 10/08/20 @ 22:01 by Cayetano Flanagan DO) H/O partial nephrectomy H/O: hysterectomy Family & Social History Social History: household members spouse Prior Living Arrangements House Safety & Behavioral: Feels Safe in Current Yes Environment Been Physically Hurt or No Threatened By a Person Suicidal Ideation Description None Suicide Plan Description No Plan Tobacco & Substance use: Smoking Status Former smoker alcohol intake current alcohol intake frequency 0-2 drinks per day Substance Use Type does not use Meds Home Medications and Allergies Home Medications Medication Instructions Recorded Confirmed Type digoxin 125 mcg PO DAILY 10/08/20 10/08/20 History verapamil 240 mg PO DAILY 10/08/20 10/08/20 History Allergies Allergy/AdvReac Type Severity Reaction Status Date / Time levofloxacin [From LEVAQUIN] Allergy Mild tingling Verified 10/08/20 10:58 metronidazole [METRONIDAZOLE] Allergy Mild tingling Verified 10/08/20 10:58 levothyroxine sodium Allergy Unknown tingling - Verified 10/08/20 10:58 [LEVOTHYROXINE SODIUM] unsure which med caused it Review of Systems Review of Systems Narrative: All other systems reviewed with the patient and are negative unless otherwise stated. Exam Vital Signs (past 8 hours): - 10/08/20 12:22 10/08/20 12:30 10/08/20 12:54 Temperature Pulse Rate 51 L 47 L 51 L Respiratory Rate 18 17 Blood Pressure 150/69 H 144/68 H Pulse Oximetry 97 99 99 10/08/20 13:00 10/08/20 13:43 10/08/20 14:28 Temperature 96.6 F L Pulse Rate 48 L 49 L Respiratory Rate 12 18 Blood Pressure 145/70 H 147/75 H Pulse Oximetry 99 99 98 10/08/20 17:33 Temperature 97.8 F Pulse Rate 64 Respiratory Rate 20 Blood Pressure 113/65 Pulse Oximetry 96 Oxygen Delivery Method Room Air Narrative Exam Narrative: GENERAL APPEARANCE: Elderly female, Well developed, well nourished, in no acute distress. SKIN: Inspection of the skin reveals no rashes, ulcerations or petechiae. HEENT: Normocephalic atraumatic, extraocular muscles are intact, oropharynx is clear and mucous membranes are moist, neck is supple without adenopathy NECK: Supple and symmetric. There was no thyroid enlargement, and no tenderness, or masses were felt. CHEST: Normal AP diameter and normal contour without any kyphoscoliosis. LUNGS: Auscultation of the lungs revealed no wheezes, rhonchi, or rales. CARDIOVASCULAR: There was a regular rate and rhythm with a few irregular heart beats, 1-2/6 systolic murmur. No rubs appreciated. ABDOMEN: Soft and nontender with normal bowel sounds. MUSCULOSKELETAL: There was no tenderness or effusions noted. Muscle strength and tone were normal. EXTREMITIES: No cyanosis, clubbing or edema. NEUROLOGIC: Alert and oriented x 3. Normal affect. Strength is +5/5 in the Upper Extremities and Lower Extremities Bilaterally. Objective Imaging Chest x-ray: My impression: Sinus bradycardia Nonspecific ST abnormality Abnormal ECG Radiologist's impression: PROCEDURE: XR CHEST 1V INDICATIONS: chest pain TECHNIQUE: One view of the chest was acquired. COMPARISON: [facility], , XR CHEST 1V, 05/26/2020, 13:21. FINDINGS: Surgical changes and devices: None. Lungs and pleura: Mild left greater than right bibasilar patchy airspace opacity. No pleural effusions or pneumothorax. Mediastinum: Mediastinal contours appear normal. Heart size is normal. Bones and chest wall: No suspicious bony lesions. Overlying soft tissues appear unremarkable. IMPRESSION: Mild bibasilar atelectasis versus pneumonia. Labs Result Diagrams: 10/08/20 10:50 10/08/20 10:50 Labs: Laboratory Results - last 24 hr 10/08/20 10/08/20 10/08/20 10:50 10:50 10:50 WBC 5.6 RBC 4.89 Hgb 14.7 Hct 44.6 MCV 91.2 MCH 29.9 MCHC 32.8 RDW 14.6 Plt Count 249 Neut % (Auto) 66.6 Lymph % (Auto) 26.1 [place] % (Auto) 6.2 Eos % (Auto) 0.2 L Baso % (Auto) 0.9 Neut # (Auto) 3700 Lymph # (Auto) 1500 [place] # (Auto) 300 Eos # (Auto) 0 Baso # (Auto) 100 PT 11.3 INR 1.0 APTT 30 D-Dimer Sodium 136 L Potassium 4.3 Chloride 104 Carbon Dioxide 27 BUN 12 Creatinine 0.70 Estimated GFR > 60.0 BUN/Creatinine Ratio 17.1 Glucose 97 Calcium 9.8 Total Bilirubin 0.5 AST 29 ALT 23 Alkaline Phosphatase 75 Total Creatine Kinase 44 CK-MB (CK-2) TNP CK-MB (CK-2) Rel Index TNP Troponin I < 0.012 NT-Pro-B Natriuret Pep Total Protein 7.3 Albumin 4.4 Globulin 2.9 Albumin/Globulin Ratio 1.5 Lipase 63 TSH Digoxin SARS-CoV-2 (PCR) 10/08/20 10/08/20 10/08/20 10:50 10:50 10:50 WBC RBC Hgb Hct MCV MCH MCHC RDW Plt Count Neut % (Auto) Lymph % (Auto) [place] % (Auto) Eos % (Auto) Baso % (Auto) Neut # (Auto) Lymph # (Auto) [place] # (Auto) Eos # (Auto) Baso # (Auto) PT INR APTT D-Dimer < 200 Sodium Potassium Chloride Carbon Dioxide BUN Creatinine Estimated GFR BUN/Creatinine Ratio Glucose Calcium Total Bilirubin AST ALT Alkaline Phosphatase Total Creatine Kinase CK-MB (CK-2) CK-MB (CK-2) Rel Index Troponin I NT-Pro-B Natriuret Pep Total Protein Albumin Globulin Albumin/Globulin Ratio Lipase TSH 3.91 Digoxin 1.2 SARS-CoV-2 (PCR) 10/08/20 10/08/20 10/08/20 10:50 12:52 19:00 WBC RBC Hgb Hct MCV MCH MCHC RDW Plt Count Neut % (Auto) Lymph % (Auto) [place] % (Auto) Eos % (Auto) Baso % (Auto) Neut # (Auto) Lymph # (Auto) [place] # (Auto) Eos # (Auto) Baso # (Auto) PT INR APTT D-Dimer Sodium Potassium Chloride Carbon Dioxide BUN Creatinine Estimated GFR BUN/Creatinine Ratio Glucose Calcium Total Bilirubin AST ALT Alkaline Phosphatase Total Creatine Kinase CK-MB (CK-2) CK-MB (CK-2) Rel Index Troponin I < 0.012 NT-Pro-B Natriuret Pep 260 Total Protein Albumin Globulin Albumin/Globulin Ratio Lipase TSH Digoxin SARS-CoV-2 (PCR) Negative Assessment & Plan Assessment & Plan narrative: This is a 75-year-old female with a past medical history of SVT who presented with recurrent palpitations and chest pressure worsening over the previous 5 days. She is admitted for further observation for possible symptomatic cardiac arrythmia. 1. Chest pressure and palpitations, acute on chronic - story is concerning for symptomatic cardiac arrythmia, however has thus far been unable to have been captured in the past. She reports a similar admission about a year ago with stress testing, will try to obtain these records as a recent stress test would be reassuring. She has not followed up with a spray drier operator helper as an outpatient since then, though she reports she was supposed to have obtained a holter. She lives on [facility] which can make follow up difficult. - continue telemetry. - repeat 2nd troponin to r/o ACS, though this appears unlikely at this time. - will continue home digoxin and verapamil, though I would recommend if no further etiology is found to come off of these medications as an outpatient with the direction of cardiology. - will obtain TTE to evaluate for any valvular pathologies or wall motion abnormalities, will work to obtain records from previous hospitalization as well to see if there was one done a year ago. - EKG not indicative of acute ischemia. There are non-contiguous ST depressions which are unchange since prior tracing done after ER evaluation 6 months ago. 2. History of SVT - continue home medications. Code: Full. no current decision / surrogate decision maker specified. Dispo: admitted under observation. DVT: lovenox daily Quality VTE Deep Vein Thrombosis/Pulmonary Embolism Present on Admission: No
[2020-10-08] MEDS: SODIUM CHLORIDE 0.9% FLUSH 10 ML IV (21:58)
[2020-10-09 00:05] VITALS: O2SAT 97
[2020-10-09 03:41] VITALS: BP 113/59; PULSE 48; RESP 14; TEMP 36.6; O2SAT 98
[2020-10-09 05:59] LABS: Add Manual Diff / Slide Review NO; Basophils Absolute Auto 0 /uL (0-100); Basophils Percent Auto 1.1 % (0-2); Eosinophils Absolute Auto 0 /uL (0-450); Eosinophils Percent Auto 1.1 % (2-4); Hematocrit 41.8 % (36-46); Hemoglobin 13.9 g/dL (12.0-16.0); Lymphocytes Absolute Auto 1200 /uL (1100-4500); Lymphocytes Percent Auto 26.8 % (25-40); Mean Corpuscular HGB Conc 33.2 % (30-36); Mean Corpuscular Hemoglobin 30.2 PG (26-34); Mean Corpuscular Volume 90.8 fL (80-100); Monocytes Absolute Auto 400 /uL (0-900); Monocytes Percent Auto 10.3 % (3-14); Neutrophils Absolute Auto 2600 /uL (1500-7000); Neutrophils Percent Auto 60.7 % (50-75); Platelet Count 214 X10^3/uL (150-400); Red Blood Cell Count 4.61 X10^6/uL (4.0-5.2); Red Cell Distribution Width 14.5 % (11.6-14.8); White Blood Cell Count 4.3 X10^3/uL (4.5-11.0)
[2020-10-09 06:22] LABS: BUN Creatinine Ratio 24.6 (6-22); Blood Urea Nitrogen 16 mg/dL (7-17); Calcium 9.1 mg/dL (8.4-10.2); Carbon Dioxide 25 mmol/L (22-32); Chloride 107 mmol/L (98-107); Estimated Glomerular Filt Rate > 60.0 mL/min (>60); Glucose 90 mg/dL (80-110); HEMOLYSIS 20 (0-50); Magnesium 1.9 mg/dL (1.6-2.3); Potassium 4.1 mmol/L (3.4-5.1); Sodium 137 mmol/L (137-145)
[2020-10-09 07:00] VITALS: BP 125/60; PULSE 50; RESP 16; TEMP 35.7; O2SAT 98
[2020-10-09] MEDS: VERAPAMIL SR 120 MG TABLET 240 MG PO (09:33)
[2020-10-09] MEDS: DIGOXIN 0.125 MG TABLET PO (09:33)
[2020-10-09] MEDS: SODIUM CHLORIDE 0.9% FLUSH 10 ML IV (09:33)
--- NOTE | 2020-10-09 09:38 | P.DS_ITS ---
History of Present Illness History of Present Illness Date Patient Seen: 10/09/20 Time Patient Seen: 09:38 Chief complaint: heart hasn't been feeling right Narrative: This is a 75-year-old female with a past medical history of SVT who presented with recurrent palpitations and chest pressure worsening over the previous 5 days. Patient states that she has a history of SVT, diagnosed more than 50 years ago and has been on digoxin and verapamil for upwards of 25 years. She has been well controlled with this but over the past year so she has had increasing palpitations with chest pressure. She states she was admitted to [facility] about a year ago for palpitations, she was evaluated overnight and had reported cardiac stress test which was unremarkable. She reports her symptoms have really picked up in the past 6 weeks. She complains of palpitations, but not tachycardia, simply irregular heartbeat. When these happen usually they last for a few minutes and she does note some left-sided chest pressure without radiation into her neck or jaw and no associated dizziness, headaches, vision changes, or falls. She denies any shortness of breath, dyspnea on exertion, orthopnea, lower extremity edema, recent fever or chills. In the emergency room, her vitals were unremarkable, EKG showed a sinus bradycardia, with no significant changes compared to previous tracings, and no contiguous ST depressions. Laboratory evaluation revealed an unremarkable CBC, normal coagulation studies, and an unremarkable chemistry, including negative troponins now x2. ProBNP was 260. TSH was unremarkable. Digoxin level was 1.2. COVID-19 testing was negative. Discharge Providers Provider Date of admission: 10/08/20 13:14 Discharge Date: 10/09/20 Primary care physician: Isaías Modi MD Discharge provider: Cayetano Flanagan DO Summary Hospital Course Discharge Diagnosis: 1. Chest pressure and palpitations, present on admission, improved 2. history of SVT Hospital Course: This is a 75-year-old female with a past medical history of SVT who presented with recurrent palpitations and chest pressure worsening over the previous 5 days. She did complain of mild episodes of palpitations here but no significant events were noted on telemetry at these times. Predominantly on telemetry she was in a sinus bradycardia. Was able to obtain records from [facility] and her stay about 1 year ago. She had a nuclear stress test that was deemed low risk at that time. Her echocardiogram here showed a normal ejection fraction with no significant valvular disease and no wall motion abnormalities. She was hypertensive at that time and another BP medications was added which has since been discontinued apparently. During this admission she had negative troponins and EKG had not significantly changed compared to previous. Blood pressures were unremarkable. Given recent stress testing, she can safely follow-up with her primary care doctor as an outpatient for cardiology referral. Consider switching off of her verapamil and digoxin for a history of SVT, but I recommend this be done at the direction of a antique furniture reproducer given that she has been on these medications for over 25 years for a history of SVT. Status at Discharge Cognitive/behavioral status at discharge: oriented Functional status at discharge: independent ambulation Exam Vital Signs (past 8 hours): - 10/09/20 03:41 10/09/20 07:00 Temperature 97.9 F 96.3 F L Pulse Rate 48 L 50 L Respiratory Rate 14 16 Blood Pressure 113/59 L 125/60 Pulse Oximetry 98 98 Oxygen Delivery Method Room Air Oxygen Flow Rate 0 Narrative Exam Narrative: GENERAL APPEARANCE: Elderly female, Well developed, well nourished, in no acute distress. SKIN: Inspection of the skin reveals no rashes, ulcerations or petechiae. HEENT: Normocephalic atraumatic, extraocular muscles are intact, oropharynx is clear and mucous membranes are moist, neck is supple without adenopathy NECK: Supple and symmetric. There was no thyroid enlargement, and no tenderness, or masses were felt. CHEST: Normal AP diameter and normal contour without any kyphoscoliosis. LUNGS: Auscultation of the lungs revealed no wheezes, rhonchi, or rales. CARDIOVASCULAR: There was a regular rhythm, bradycardic rate, 1-2/6 systolic murmur. No rubs appreciated. ABDOMEN: Soft and nontender with normal bowel sounds. MUSCULOSKELETAL: There was no tenderness or effusions noted. Muscle strength and tone were normal. EXTREMITIES: No cyanosis, clubbing or edema. NEUROLOGIC: Alert and oriented x 3. Normal affect. Strength is +5/5 in the Upper Extremities and Lower Extremities Bilaterally. Objective ECG Impression: Chest x-ray: My impression: Sinus bradycardia Nonspecific ST abnormality Imaging Chest x-ray: Radiologist's impression: Radiologist's impression: PROCEDURE: XR CHEST 1V INDICATIONS: chest pain TECHNIQUE: One view of the chest was acquired. COMPARISON: [facility], CR, XR CHEST 1V, 05/26/2020, 13:21. FINDINGS: Surgical changes and devices: None. Lungs and pleura: Mild left greater than right bibasilar patchy airspace opacity. No pleural effusions or pneumothorax. Mediastinum: Mediastinal contours appear normal. Heart size is normal. Bones and chest wall: No suspicious bony lesions. Overlying soft tissues appear unremarkable. IMPRESSION: Mild bibasilar atelectasis versus pneumonia. Labs Result Diagrams: 10/09/20 05:30 10/09/20 05:30 Labs: Laboratory Results - last 24 hr 10/08/20 10/08/20 10/08/20 10:50 10:50 10:50 WBC 5.6 RBC 4.89 Hgb 14.7 Hct 44.6 MCV 91.2 MCH 29.9 MCHC 32.8 RDW 14.6 Plt Count 249 Neut % (Auto) 66.6 Lymph % (Auto) 26.1 Carson % (Auto) 6.2 Eos % (Auto) 0.2 L Baso % (Auto) 0.9 Neut # (Auto) 3700 Lymph # (Auto) 1500 Carson # (Auto) 300 Eos # (Auto) 0 Baso # (Auto) 100 PT 11.3 INR 1.0 APTT 30 D-Dimer Sodium 136 L Potassium 4.3 Chloride 104 Carbon Dioxide 27 BUN 12 Creatinine 0.70 Estimated GFR > 60.0 BUN/Creatinine Ratio 17.1 Glucose 97 Calcium 9.8 Magnesium Total Bilirubin 0.5 AST 29 ALT 23 Alkaline Phosphatase 75 Total Creatine Kinase 44 CK-MB (CK-2) TNP CK-MB (CK-2) Rel Index TNP Troponin I < 0.012 NT-Pro-B Natriuret Pep Total Protein 7.3 Albumin 4.4 Globulin 2.9 Albumin/Globulin Ratio 1.5 Lipase 63 TSH Digoxin SARS-CoV-2 (PCR) 10/08/20 10/08/20 10/08/20 10:50 10:50 10:50 WBC RBC Hgb Hct MCV MCH MCHC RDW Plt Count Neut % (Auto) Lymph % (Auto) Carson % (Auto) Eos % (Auto) Baso % (Auto) Neut # (Auto) Lymph # (Auto) Carson # (Auto) Eos # (Auto) Baso # (Auto) PT INR APTT D-Dimer < 200 Sodium Potassium Chloride Carbon Dioxide BUN Creatinine Estimated GFR BUN/Creatinine Ratio Glucose Calcium Magnesium Total Bilirubin AST ALT Alkaline Phosphatase Total Creatine Kinase CK-MB (CK-2) CK-MB (CK-2) Rel Index Troponin I NT-Pro-B Natriuret Pep Total Protein Albumin Globulin Albumin/Globulin Ratio Lipase TSH 3.91 Digoxin 1.2 SARS-CoV-2 (PCR) 10/08/20 10/08/20 10/08/20 10:50 12:52 19:00 WBC RBC Hgb Hct MCV MCH MCHC RDW Plt Count Neut % (Auto) Lymph % (Auto) Carson % (Auto) Eos % (Auto) Baso % (Auto) Neut # (Auto) Lymph # (Auto) Carson # (Auto) Eos # (Auto) Baso # (Auto) PT INR APTT D-Dimer Sodium Potassium Chloride Carbon Dioxide BUN Creatinine Estimated GFR BUN/Creatinine Ratio Glucose Calcium Magnesium Total Bilirubin AST ALT Alkaline Phosphatase Total Creatine Kinase CK-MB (CK-2) CK-MB (CK-2) Rel Index Troponin I < 0.012 NT-Pro-B Natriuret Pep 260 Total Protein Albumin Globulin Albumin/Globulin Ratio Lipase TSH Digoxin SARS-CoV-2 (PCR) Negative 10/09/20 10/09/20 05:30 05:30 WBC 4.3 L RBC 4.61 Hgb 13.9 Hct 41.8 MCV 90.8 MCH 30.2 MCHC 33.2 RDW 14.5 Plt Count 214 Neut % (Auto) 60.7 Lymph % (Auto) 26.8 Carson % (Auto) 10.3 Eos % (Auto) 1.1 L Baso % (Auto) 1.1 Neut # (Auto) 2600 Lymph # (Auto) 1200 Carson # (Auto) 400 Eos # (Auto) 0 Baso # (Auto) 0 PT INR APTT D-Dimer Sodium 137 Potassium 4.1 Chloride 107 Carbon Dioxide 25 BUN 16 Creatinine 0.65 Estimated GFR > 60.0 BUN/Creatinine Ratio 24.6 H Glucose 90 Calcium 9.1 Magnesium 1.9 Total Bilirubin AST ALT Alkaline Phosphatase Total Creatine Kinase CK-MB (CK-2) CK-MB (CK-2) Rel Index Troponin I NT-Pro-B Natriuret Pep Total Protein Albumin Globulin Albumin/Globulin Ratio Lipase TSH Digoxin SARS-CoV-2 (PCR) [facility] Medical History History of supraventricular tachycardia Surgical History (Updated 10/08/20 @ 22:01 by Cayetano Flanagan DO) H/O partial nephrectomy H/O: hysterectomy Social History household members: spouse Smoking Status: Former smoker alcohol intake: current Discharge Plan Discharge Plan Patient Disposition: Home Provider Discharge Comment: This is a 75-year-old female with a past medical history of SVT who presented with recurrent palpitations and chest pressure worsening over the previous 5 days. She did complain of mild episodes of palpitations here but no significant [facility] Predominantly on telemetry she was in a sinus bradycardia. Was able to obtain records from [facility] and her stay about 1 year ago. She had a nuclear stress test that was deemed low risk at that time. Her echocardiogram here showed a normal ejection fraction with no significant valvular disease and no wall motion abnormalities. She was hypertensive at that time and another BP medications was added which has since been discontinued apparently. During this admission she had negative troponins and EKG had not significantly changed compared to previous. Blood pressures were unremarkable. Given recent stress testing, she can safely follow-up with her primary care doctor as an outpatient for cardiology referral. Consider switching off of her verapamil and digoxin for a history of SVT, but I recommend this be done at the direction of a antique furniture reproducer given that she has been on these medications for over 25 years for a history of SVT. Discharge orders & Medications Prescriptions: Continued digoxin 125 mcg (0.125 mg) Tablet 125 mcg PO DAILY RF: 0 verapamil 240 mg Tablet Extended Release 240 mg PO DAILY RF: 0 Follow up/Referrals: Isaías Modi MD [Primary Care Provider] - Discharge Data Primary Care Provider: Isaías Modi Attending Provider: Cayetano Flanaagn VTE Deep Vein Thrombosis/Pulmonary Embolism Present on Admission: No
--- NOTE | 2020-10-09 11:00 | CM.DANOTE ---
DCP/Assessment: Reviewed chart. Patient is a 75yr old female admitted to [facility] with cardiac complaints. PCP listed is Dr. Modi. Primary payor is 1)Medicare 2)[facility]. Met with patient explained CM/SW role. Patient alert and oriented, ambulating in room at time of visit. Patient reports that she plans to d/c home when medically stable. Per provider in AM rounds d/c anticipated for today. Patient completely I in ADL's and reports that her spouse will be picking her up. Patient plans to take 3:05pm ferry back to [facility]. RN notified that priority boarding pass will be needed. P: Home today with outout any d/c planning needs. DIANNE Lovell Discharge Planning/Care Management CM Discharge Assessment Start: 10/09/20 10:24 Freq: Status: Active Protocol: Document 10/09/20 10:24 KJS (Rec: 10/09/20 11:00 KJS [id number]) Discharge Planning Assessment Assigned Office Support Clerk DIANNE Lovell Contact Information Nash Cee (spouse) ph# [phone] Advance Directives? No History Provided By Patient,Medical Record Prior Living Arrangements House Household Members spouse Type of transporation used prior to Drives own vehicle admit Willing to Return to Facility? No Independent with ADL's Yes Is patient alert and oriented? Yes Caregiver for Another No Barriers to Discharge No Discharge Plan Home Transportation Arrangement Patient reports that spouse can provide transport. Patient will need priority boarding pass to return to [facility] . Referrals Initiated None needed Whiteboard Updated in Patient Room with Yes name and ext. # of Office Support Clerk Review Status In Process Next Review Type Continued Stay Review
--- NOTE | 2020-10-09 11:11 | PC.NURSE ---
Patient educated about diet, diagnosis, medications, activity, ss of stroke, follow up with doctor's office after being in the hospital. Patient was educated about follow up with a certified medical aide after discharge. Patient was given Dr. Doss's phone number. Patient left facility with all belongings via private vehicle with . Patient has priority ferry pass.
== END 2020-10-09 11:10 | disposition home or self-care (01) ==
LOC: ED 11:04 → AC 13:15
PROVIDERS: Admitting Provider Internal Medicine; Emergency Provider Emergency Medicine; PCP Family Medicine; Referring Provider Emergency Medicine; Visit Provider Internal Medicine
DX: R07.89 Other chest pain (principal); R00.2 Palpitations; Z20.822 Contact with and (suspected) exposure to COVID-19
CPT/HCPCS: 36415; 71045; 80048; 80053; 80162; 82550; 83690; 83735; 83880; 84443; 84484; 85025; 85379; 85610; 85730; 87635; 93005; 93010; 93306; 99284; C9803; G0378; J1650

== ENCOUNTER 2022-03-19 07:58 | Emergency (ER) | payer MEDICARE, SELFPAY ==
[2020-10-08 13:37] VITALS: BMI 20.2
[2022-03-19 08:04] VITALS: BP 152/70; PULSE 63; RESP 16; TEMP 36.1; O2SAT 98; BMI 21.2
--- NOTE | 2022-03-19 08:40 | ED_ITS ---
HPI - Back Pain/Injury General Chief Complaint: Back Pain/Injury Stated Complaint: Back pain after lifting- heard pop (six days ago) Time Seen by Provider: 03/19/22 08:40 Source: patient History of Present Illness HPI Narrative: Otherwise healthy 76-year-old woman with a history of supraventricular tachycardia currently on verapamil was lifting something 6 days ago and felt an acute pop in her lower back. She has been having lower back discomfort since. She describes no fevers, radicular pain, paresthesias, difficulty in urinating. She notes that she has not had a bowel movement since the event despite taking 3 doses of a stool softener. Constipation is unusual for her. She notes that Tylenol has been more effective in controlling her pain than a single a leave. She finds that in the morning she is quite painful and has difficulty rolling in getting out of bed but by the late afternoons and evenings she is feeling significantly improved. No chest pain, palpitations, shortness of breath. She does it is that she is passing gas and does not have a sense that there is stool in the rectum. No nausea, vomiting, diarrhea. No weakness into the lower extremities and she does have sensation along the perineal body. Related Data Previous Rx's Medication Instructions Recorded verapamil 240 mg tablet,extended 240 mg PO QPM #90 tabs 06/17/21 release Allergies Allergy/AdvReac Type Severity Reaction Status Date / Time levofloxacin [From LEVAQUIN] Allergy Mild tingling Verified 06/17/21 09:02 metronidazole [METRONIDAZOLE] Allergy Mild tingling Verified 06/17/21 09:02 levothyroxine sodium Allergy Unknown tingling - Verified 06/17/21 09:02 [LEVOTHYROXINE SODIUM] unsure which med caused it Review of Systems Review of Systems Narrative: Remainder of complete review of systems is otherwise unremarkable except for that included in the HPI. Patient History Medical History History of supraventricular tachycardia Malignant neoplasm of ovary Surgical History H/O partial nephrectomy H/O: hysterectomy Social History household members: spouse Smoking Status: Former smoker alcohol intake: current Smoking Status: Former smoker alcohol intake frequency: 0-2 drinks per day Substance Use Type: does not use Exam Initial Vital Signs Initial Vital Signs: Vital Signs Temperature 96.9 F L 03/19/22 08:04 Pulse Rate 63 03/19/22 08:04 Respiratory Rate 16 03/19/22 08:04 Blood Pressure 152/70 H 03/19/22 08:04 Pulse Oximetry 98 03/19/22 08:04 Oxygen Delivery Method 03/19/22 08:04 General: Healthy appearing, in no acute distress. Able to give a complete and coherent history. Well-nourished well-developed HEENT: Moist mucous membranes, normal sclera with reactive pupils, Neck: supple Respiratory: Lungs are clear to auscultation, no wheezing no rales no rhonchi. Full and symmetrical air movement Cardiac: Regular rate and rhythm no murmurs no bruits Abdomen: Soft, nontender, good bowel tones, no flank pain Lumbar spine: No point tenderness along thoracic or lumbar spine. No para spinous muscle spasm. No skin changes, erythema, warmth. She describes the area of concern centered on the lumbar spine and radiating across the low back bilaterally. There is no tenderness with pelvic ring manipulation. Skin: Warm and dry, no rashes Neurologic: Grossly neurologically intact with no obvious asymmetries or abnormalities Extremities: No trauma, well perfused, intact distal sensation and extremities bilaterally Psych: Cooperative, appropriate insight and affect Course Orders Ordered: ED Orders 03/19/22 08:54 XR lumbar spine 2-3V Stat Discontinued Medications Naproxen (Naproxen 250 Mg Tablet) 500 mg PO NOW ONE Stop: 03/19/22 08:55 Last Admin: 03/19/22 09:19 Dose: 500 mg Documented By: BT Vital Signs Vital signs: Vital Signs - 8 hr 03/19/22 08:04 Temperature 96.9 F L Pulse Rate 63 Respiratory Rate 16 Blood Pressure 152/70 H Pulse Oximetry 98 Oxygen Delivery Method Room Air MDM - Back Pain/Injury Imaging Data XR lumbar: Radiologist's Impression: FINDINGS:? ? Bones:? 5 [id number] vertebrae are present.? Mild dextroconvex curvature of the lumbar spine.? No suspicious bony lesions.? Mild compression deformities at the T12, L1, L2, and L5 vertebral bodies of uncertain chronicity.? L2 and L5 fractures appear new when compared to the CT from 01/20/2018.? Multilevel disc space narrowing and degenerative endplate changes and multilevel facet hypertrophy are seen. ? Soft tissues:? Overlying bowel gas pattern is normal.? No suspicious soft tissue calcifications.? Mild aortic atherosclerotic calcifications. ? ? IMPRESSION:? Multiple mild compression fractures of uncertain age.? Mild compression fractures at L2 and L5 appear new when compared to the remote prior CT from 01/20/2018.? Recommend correlation for point tenderness.? Lumbar spine MRI could be performed to evalu ate for the presence of edema if indicated clinically.? ? ? Dictated by: Palomo Ruiz M.D. on 03/19/2022 at 9:21 ? ? MDM Narrative Medical decision making narrative: 76-year-old woman who was lifting a heavy box 6 days ago felt a pop and has been having low back pain since. X-rays suggest possible new L2 and or L5 fracture. I suspect that, based on clinical exam, the L2 fracture is new and the source of her acute pain. Is not significant enough that kyphoplasty might be helpful. There is no evidence of acute neurologic compromise. She likely had an ileus early on however she is having increased bowel no eyes is and I suspect that the ileus is resolving at this point. Findings are reviewed with the patient. Will go ahead and give for a oral laxative here in the emergency department and have her continue the stool softeners at home. Recommended b.i.d. Naprosyn with as needed Tylenol for additional pain, encourage gentle mobilization and follow-up with her primary care physician. She was unaware of any of the prior compression fractures. Questions were answered she is safe for home discharge Discharge Plan Departure Patient Disposition: Home Clinical Impression: Closed compression fracture of lumbar vertebra Qualifiers: Encounter type: initial encounter Lumbar vertebra fracture level: L2 Qualified Code(s): S32.020A - Wedge compression fracture of second lumbar vertebra, initial encounter for closed fracture Instructions: DI for Vertebral Fracture Activity Restrictions/Additional Instructions: Thank you for coming in today It looks like you have a new compression fracture at the L2 level. This is where the vertebral body gets squished down on itself. That correlates with lifting the heavy box and the acute pop sensation. There is no evidence that is causing any nerve injury. This will improve within 4-6 weeks and each week should get better. Gentle movement in activity is going to be helpful in overall recovery. For pain control I am going to recommend 2 Aleve in the morning and 2 Aleve at night. As pain gets better controlled you can decrease this to 1 in the morning 1 and night. You can continue to use Tylenol at any time during the day. If you find that you are getting worse or develop any new symptoms, please feel free to return to the emergency department for further evaluation. Prescriptions: No Action verapamil 240 mg tablet extended release 240 mg PO QPM Qty: 90 3RF
--- NOTE | 2022-03-19 08:54 | DI.RAD.S_ITS ---
PROCEDURE: XR LUMBAR SPINE 2-3V INDICATIONS: acute pain after lifting heavy object 6 days ago TECHNIQUE: 3 views of the lumbar spine were acquired. COMPARISON: [facility], CT, CT ABDOMEN WWO PELVIS W, 01/20/2018, 14:33. FINDINGS: Bones: 5 [id number] vertebrae are present. Mild dextroconvex curvature of the lumbar spine. No suspicious bony lesions. Mild compression deformities at the T12, L1, L2, and L5 vertebral bodies of uncertain chronicity. L2 and L5 fractures appear new when compared to the CT from 01/20/2018. Multilevel disc space narrowing and degenerative endplate changes and multilevel facet hypertrophy are seen. Soft tissues: Overlying bowel gas pattern is normal. No suspicious soft tissue calcifications. Mild aortic atherosclerotic calcifications. IMPRESSION: Multiple mild compression fractures of uncertain age. Mild compression fractures at L2 and L5 appear new when compared to the remote prior CT from 01/20/2018. Recommend correlation for point tenderness. Lumbar spine MRI could be performed to evaluate for the presence of edema if indicated clinically. Dictated by: Palomo Ruiz M.D. on 03/19/2022 at 9:21 Approved by: Palomo Ruiz M.D. on 03/19/2022 at 9:26
[2022-03-19] MEDS: NAPROXEN 250 MG TABLET 500 MG PO (09:19)
[2022-03-19] MEDS: BISACODYL 5 MG TABLET 10 MG PO (10:00)
[2022-03-19 10:01] VITALS: BP 140/67; PULSE 60; RESP 18; O2SAT 98
== END 2022-03-19 10:01 | disposition home or self-care (01) ==
PROVIDERS: Emergency Provider Emergency Medicine
DX: S32.020A Wedge compression fracture of second lumbar vertebra, initial encounter for closed fracture (principal); K59.00 Constipation, unspecified
CPT/HCPCS: 72100; 99283

== ENCOUNTER → 2025-04-04 09:54 | Outpatient (CLI) | payer MEDICARE, OTHER, SELFPAY ==
[2020-10-08 13:37] VITALS: BMI 20.2
[2025-04-04 18:52] LABS: Add Manual Diff / Slide Review NO; Hematocrit 42.0 % (36-46); Hemoglobin 14.2 g/dL (12.0-16.0); Lymphocytes Absolute Auto 1200 /uL (1100-4500); Mean Corpuscular HGB Conc 33.9 % (30-36); Mean Corpuscular Hemoglobin 31.5 PG (26-34); Mean Corpuscular Volume 93.1 fL (80-100); Platelet Count 263 X10^3/uL (150-400)
[2025-04-04 19:22] LABS: Cholesterol 202 mg/dL (140-199); HDL Cholesterol 101 mg/dL (40-60); Triglycerides 56 mg/dL (35-150)
[2025-04-04 19:52] LABS: TSH w/ Reflex to FT4 3.03 uIU/mL (0.47-4.68)
== END ==
PROVIDERS: Visit Provider Physician Assistant Medical
DX: Z13.6 Encounter for screening for cardiovascular disorders (principal); R00.2 Palpitations; K21.9 Gastro-esophageal reflux disease without esophagitis; Z12.11 Encounter for screening for malignant neoplasm of colon; Z86.79 Personal history of other diseases of the circulatory system; N28.89 Other specified disorders of kidney and ureter
CPT/HCPCS: 80061; 84443; 85025